=== PATIENT | male | born 1935 | race Caucasian/White ===

== ENCOUNTER 2016-10-23 14:39 | Inpatient (IN) | payer BC ==
[2016-10-22 09:26] LABS: INTERNATIONAL NORMAL RATI 1.7 UNITS (-)
[2016-10-22 09:27] LABS: PROTIME (NOT ORD) 19.5 SEC (12.0-14.5)
--- NOTE | ~2016-10-23 | CN ---
Consultation Report [facility] [address] [place]. [address] NAME: ADEEL PELAEZ : 37 STATUS : ADM IN [facility]#: [id number] AGE: 81 ADM/REG DATE : 10/23/16 MR#: [id number] REPORT SERV DATE: 10/24/16 DICTATED BY: DENVER JOHNSTON DATE: 10/24/16 REPORT STATUS : Draft TRANSCRIBED BY: MODL DATE: 10/24/16 CARDIOLOGY CONSULTATION DATE OF CONSULTATION: 10/24/2016 REASON FOR CONSULTATION: Regarding congestive heart failure. REQUESTING PHYSICIAN: Juliane Jarrell M.D. HISTORY OF PRESENT ILLNESS: Mr. Pelaez is a pleasant 81-year-old gentleman, who was admitted with complaints of nausea and vomiting that started over the last one to two days. He has a known history of coronary artery disease and ischemic cardiomyopathy, and sees Dr. Gerber Do in the [facility]. He has a history of a remote CAB. He has had a biventricular ICD placed in the past and has a history of atrial fibrillation, and is treated with amiodarone and Coumadin for CVA prophylaxis. In early August, he had a long hospital stay in regard to hypovolemic shock, acute kidney injury, and respiratory failure. He also had problems with hematuria at that time. He has a chronic Lora inserted. He was transferred to rehabilitation on 09/23/2016 and was there when he began to complain of nausea with some mild vomiting approximately two days ago. He came in through the emergency room. Workup here was essentially unremarkable. He did show some mild pulmonary vascular congestion, and a small left pleural effusion. He was denying any PND, orthopnea, pedal edema, as well as any chest pain or chest discomfort. PAST MEDICAL HISTORY: 1. Notable for coronary artery disease, status post CAB. 2. Ischemic cardiomyopathy, ejection fraction of 25%. Class 3 congestive heart failure. 3. History of what appears to be a biventricular ICD. 4. Atrial fibrillation. 5. Hypertension. 6. Hyperlipidemia. 7. Type 2 diabetes. 8. Crohn's disease. 9. AAA. 10.COPD. 11.Anemia. 12.Hematuria. HOME MEDICATIONS: Albuterol, amiodarone taking 100 mg daily, Lipitor 40 mg at bedtime, carvedilol 3.125 mg p.o. b.i.d., vitamin B12, Proscar, Levaquin, lisinopril 2.5 mg daily, magnesium, oxycodone, potassium, and omeprazole. FAMILY HISTORY: Noncontributory. Negative for premature coronary disease. SOCIAL HISTORY: Currently no tobacco. History of tobacco use. No alcohol. No illicit drug Consultation Report [address] [place]. [address] NAME: ADEEL PELAEZ : 37 STATUS : ADM IN [facility]#: [id number] AGE: 81 ADM/REG DATE : 10/23/16 MR#: [id number] REPORT SERV DATE: 10/24/16 DICTATED BY: DENVER JOHNSTON DATE: 10/24/16 REPORT STATUS : Draft TRANSCRIBED BY: TRUMAN DATE: 10/24/16 use. REVIEW OF SYSTEMS: As noted above. All other systems were reviewed and negative. PHYSICAL EXAMINATION: VITAL SIGNS: Blood pressure of 134/68, pulse of 70 and paced, and respirations 16. GENERAL: Well developed, well nourished. HEENT: No icterus. Good dentition. NECK: Supple. No masses or thyromegaly LUNGS: Breathing comfortably. No rales or wheezes. COR: Normal S1, S2. No S3 or S4. No murmurs, clicks, rubs. No JVD ABD: Soft, nondistended, nontender, no hepatosplenomegaly. EXT: No clubbing, cyanosis or edema. Peripheral pulses 2+ or equal bilaterally. SKIN: Warm and dry. No visible lesions. MS: Chest wall without deformity, no obvious clavicular fractures. NEURO/PSYCH: Oriented X3. No anxiety or depression. DIAGNOSTIC DATA: EKG, unclear underlying rhythm, possible atrial fibrillation with complete heart block, and biventricular pacing. LABORATORY DATA: INR is subtherapeutic at 1.5. BUN, creatinine, and electrolytes all within normal limits. White count of 5.7, hematocrit of 38, and platelet count of 383. IMPRESSION: 1. The patient was admitted with complaints of nausea and vomiting, this is unlikely to be related to underlying congestive heart failure. He does not appear to have a congestive heart failure exacerbation. He is denying PND, orthopnea, or pedal edema. There is some mild pulmonary vascular congestion on chest x-ray, although, this very well may be a chronic condition for him. When I saw him this morning, he was lying completely flat, and did not have any shortness of breath. He is undergoing a gentle diuresis with Bumex 0.5 mg IV p.o. b.i.d. I believe this is reasonable to see if this improves his symptoms at all, but again, it seems less likely that his current symptoms are manifestation of his coronary artery disease or congestive heart failure. 2. ICD appears to be biventricularly pacing by EKG morphology. This appears to be within normal limits. 3. Coronary artery disease, history of CAB, this appears to be stable. I would continue his current cardiac medications. His INR was subtherapeutic on admission, and it is increasing, and it is now up to 1.9. No further recommendations from cardiology standpoint at this time. RUIZ/TRUMAN Consultation Report [address] [address] NAME: ADEEL PELAEZ : 37 STATUS : ADM IN PAT#: [id number] AGE: 81 ADM/REG DATE : 10/23/16 MR#: [id number] REPORT SERV DATE: 10/24/16 DICTATED BY: DENVER JOHNSTON DATE: 10/24/16 REPORT STATUS : Draft TRANSCRIBED BY: MODL DATE: 10/24/16 Denver Johnston M.D. / [id number] CC: Kurtis Corey MD
--- NOTE | ~2016-10-23 | HP ---
History And Physical [address] [place]. [address] NAME: ADEEL PELAEZ : 37 STATUS : ADM IN [facility]#: [id number] AGE: 81 ADM/REG DATE : 10/23/16 MR#: [id number] REPORT SERV DATE: 10/23/16 DICTATED BY: MITALI MONTES DATE: 10/23/16 REPORT STATUS : Draft TRANSCRIBED BY: TRUMAN DATE: 10/23/16 DATE OF ADMISSION: 10/23/2016 CHIEF COMPLAINT: Nausea and vomiting. A 81-year-old male with a past medical history of ischemic cardiomyopathy, ejection fraction of 25%, status post CABG and AICD/pacer, being followed by Dr. Do, investment director as an outpatient. Also history of chronic Lora with a history of a recent hematuria requiring cystoscopy/evacuation per Urology. The patient was recently discharged from the hospital on 09/23/2016 for hypovolemic shock with acute renal failure, respiratory failure also with hematuria, taken to the OR for cystoscopy. The patient had a lengthy hospitalization. Currently resides at [facility]. The patient states that approximately 1 to 2 days ago, he developed intractable nausea and vomiting. Denies any hematemesis. Just clear vomit according to the patient as well as worsening shortness of breath. He denies any dysuria. No abdominal pain. He states he has had intermittent left-sided chest discomfort which now has resolved. He denies any subjective fever or chills. No diarrhea. No constipation. His last BM was approximately 5 a.m. which was stated as normal this morning. The patient was seen in the ER by Dr. Uribe. Given a dose of cefepime for suspected urinary tract infection and treated with Phenergan and Zofran for intractable nausea and vomiting and given a dose of lactated Ringer's 500 mL bolus and the hospitalist was called to admit the patient to the hospital. REVIEW OF SYSTEMS: Please refer to HPI. PAST MEDICAL HISTORY: Ischemic cardiomyopathy/coronary artery disease, status post CABG with ejection fraction of 25%, status post AICD/pacer; hematuria; anemia; hypoxia; COPD; obstructive sleep apnea with CPAP; atrial fibrillation; Crohn's disease; hypertension; hyperlipidemia; type 2 diabetes; and AAA. PAST SURGICAL HISTORY: Tonsillectomy, cystoscopy, and also as mentioned above. FAMILY HISTORY: Type 2 diabetes. SOCIAL HISTORY: No tobacco but a history but quit. No alcohol or illicit drugs. Currently in [facility] for rehab. ALLERGIES: NO KNOWN ALLERGIES. MEDICATIONS: DuoNeb b.i.d. and q.4 hours p.r.n.; amiodarone 100 mg p.o. q.a.m.; Lipitor 40 mg p.o. at bedtime; Bisacodyl 10 mg per rectum daily p.r.n.; Coreg 3.125 mg p.o. b.i.d.; cholecalciferol 2000 units p.o. q.a.m.; vitamin B12 1000 mcg sublingual q.a.m.; diclofenac 2 g topically q.i.d. and p.r.n.; Lomotil 5 mg p.o. b.i.d. p.r.n.; Proscar 5 mg p.o. at bedtime; guaifenesin 400 mg p.o. b.i.d. p.r.n.; Levaquin 500 mg daily dose for seven days, completed on 10/12/2016; lisinopril 2.5 mg p.o. daily; magnesium oxide 400 mg p.o. q.a.m.; melatonin 3 mg p.o. at bedtime p.r.n.; milk of magnesia 30 mL p.o. daily p.r.n.; Dulera 2 History And Physical [address] [address] NAME: ADEEL PELAEZ : 37 STATUS : ADM IN [facility]#: [id number] AGE: 81 ADM/REG DATE : 10/23/16 MR#: [id number] REPORT SERV DATE: 10/23/16 DICTATED BY: MITALI MONTES DATE: 10/23/16 REPORT STATUS : Draft TRANSCRIBED BY: TRUMAN DATE: 10/23/16 puffs inhaled b.i.d.; multivitamin; Prilosec 40 mg p.o. q.a.m.; Percocet 5/325 one tab p.o. q.4 hours p.r.n.; potassium chloride/K-Dur 20 mEq p.o. q.a.m.; Florastor 250 mg p.o. b.i.d.; Gas-X 80 mg p.o. four times a day p.r.n.; Bactrim DS one tab p.o. b.i.d. for five days completed on 10/18/2016; Ultram 50 mg p.o. q.6 hours p.r.n.; and warfarin 1.5 mg p.o. daily. PHYSICAL EXAMINATION: VITAL SIGNS: Temperature of 98.8, blood pressure 124/54 with a pulse of 89, respiration of 16, saturating 88 to 92% on 2 to 3 L. GENERAL: The patient is alert and oriented x3, morbidly obese. HEENT: Pupils equal, round, and reactive to light. Extraocular muscles are intact with moist mucous membranes. CARDIOVASCULAR: S1, S2. Irregularly irregular. No rubs. No gallops. RESPIRATORY: With positive rales, more so in the right upper quadrant right lower lobe and no wheezing. Positive wet sounds. No tachypnea. ABDOMEN: Positive bowel sounds. Soft, nontender. No rebound. No fluid wave. No distention. EXTREMITIES: 2+ pulse bilaterally with a trace of edema. NEUROLOGIC: Cranial nerves II through XII grossly intact. Moves all four extremities. No neuro focal deficits. DATA: Chest x-ray with some venous congestion and reported small left pleural effusion, however with some increased infiltrate also in the right middle lobe and right lower lobe per my interpretation. Sodium 144, potassium 4.1 with a chloride of 110, bicarb 26, BUN of 13, creatinine of 0.81 with a glucose of 109, albumin of 2.6, T-bilirubin 0.7 with alkaline phosphatase of 128, ALT of 41, AST of 49, troponin is 0.03. White cell count of 5.7 with a hemoglobin of 12.4, platelet count of 383. INR 1.5. Urinalysis, apparently urinalysis was gathered from the Lora bag by the ER nurse, it should have been from the port, however has a specific gravity of 1.018, large amount of blood, large amount of leukocyte esterase with greater than 182 of white blood cells. EKG with paced rhythm. No ST elevation. ASSESSMENT AND PLAN: 1. CHF exacerbation, fluid overload. 2. Intractable nausea and vomiting. 3. Suspected urinary tract infection with chronic Lora. 4. Acute on chronic hypoxia. 5. Obstructive sleep apnea. 6. Atrial fibrillation. 7. Type 2 diabetes. The patient will be admitted into the hospital. We will give a dose of a diuretic low-dose and closely monitor blood pressure due to his history of hypotension in the past. The patient is currently in fluid overload. Also, we will support with antiemetics as needed and also we will recommend a repeat urine culture from higher up port catheter and to avoid bag urine culture from the Lora bag. We will continue with bronchodilators. Also we will History And Physical [address] [address] NAME: ADEEL PELAEZ : 37 STATUS : ADM IN [facility]#: [id number] AGE: 81 ADM/REG DATE : 10/23/16 MR#: [id number] REPORT SERV DATE: 10/23/16 DICTATED BY: MITALI MONTES DATE: 10/23/16 REPORT STATUS : Draft TRANSCRIBED BY: TRUMAN DATE: 10/23/16 order for home CPAP and consult pharmacy for Coumadin management. The patient is currently subtherapeutic. Also we will place on a sliding scale insulin for now. The patient should be closely monitored. [facility]/TRUMAN Mitali Montes M.D. / [id number] CC: Kurtis Corey MD
--- NOTE | ~2016-10-23 | CN ---
Consultation Report [facility] [place] [place]. [address] NAME: ADEEL PELAEZ : 37 STATUS : ADM IN PAT#: [id number] AGE: 81 ADM/REG DATE : 10/23/16 MR#: [id number] REPORT SERV DATE: 10/24/16 DICTATED BY: Pradeep HUSAIN DATE: 10/24/16 REPORT STATUS : Draft TRANSCRIBED BY: MODL DATE: 10/24/16 CONSULTATION DATE OF CONSULTATION: 10/24/2016 CHIEF COMPLAINT: Urinary retention with chronic indwelling Lora, possible UTI. HISTORY OF PRESENT ILLNESS: Mr. 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 I was able to manipulate a catheter in his bladder. He was admitted for other medical problems and developed hematuria that required catheter clot evacuation several weeks later. He has failed several voiding trials and has been nonambulatory and I have been reluctant to try to get him catheter free at this time. I saw him in my office three or four weeks ago and managed to change his catheter uneventfully, although I had to do it myself. He is admitted now with his host of medical problems and with basically nausea and vomiting and is being evaluated for that. There was some concern that he may have a UTI, although obviously he has inflammatory urine with a chronic indwelling Lora. The culture has been sent. PAST MEDICAL HISTORY: 1. Severe ischemic cardiomyopathy. 2. CAD. 3. AICD pacemaker. 4. Urinary retention. 5. COPD. 6. Obstructive sleep apnea. 7. Atrial fib. 8. Crohn disease. 9. Hypertension. 10.Hyperlipidemia. 11.Diabetes mellitus. PAST SURGICAL HISTORY: 1. Tonsillectomy. 2. Several cystoscopic exams with clot evacuation. 3. CABG. 4. AICD. 5. Cardiac stent. 6. Appendectomy. 7. Left nephrectomy for renal cell carcinoma. 8. Left carpal tunnel repair. 9. Eyelid surgery. 10.Cataract extraction. HOME MEDICATIONS: DuoNeb inhaler, Cordarone, Lipitor, Dulcolax, Coreg, vitamin D, vitamin B, Consultation Report [id number] [place]. [address] NAME: ADEEL PELAEZ : 37 STATUS : ADM IN PAT#: [id number] AGE: 81 ADM/REG DATE : 10/23/16 MR#: [id number] REPORT SERV DATE: 10/24/16 DICTATED BY: Pradeep HUSAIN DATE: 10/24/16 REPORT STATUS : Draft TRANSCRIBED BY: TRUMAN DATE: 10/24/16 Voltaren, Lomotil, Proscar, guaifenesin, Levaquin, Prinivil, Mag-Ox, melatonin, milk of magnesia, Dulera, multivitamins, Prilosec, Percocet, potassium. ALLERGIES: NO KNOWN DRUG ALLERGIES. FAMILY HISTORY: Negative for urologic disease. SOCIAL HISTORY: Previous smoker. Denies current alcohol use. REVIEW OF SYSTEMS: Full 12-point review of systems negative except as noted above. PHYSICAL EXAMINATION: GENERAL: A 81-year-old white male, alert, pleasant, afebrile with normal vital signs. No respiratory distress. HEART: Regular rate and rhythm. ABDOMEN: Protuberant, nontender, nondistended. : Indwelling 20-Andorran 2-way Lora catheter draining crystal clear urine. He has a phimotic buried-type penis. No peripheral edema noted. PERTINENT LABORATORIES: Creatinine 0.81. Urinalysis inflammatory as expected, it has been sent for culture. IMPRESSION: 1. Multiple medical problems. 2. History of chronic urinary retention with buried penis. Managed currently with indwelling Lora catheter. PLAN: I think at this point my thought would be that we wait his culture when he is on antibiotics for few days, but then we could probably change his catheter since he is due to have that done in the near future. If he is discharged before that, then I could do it in my office. I am not really ready to give him a voiding trial until he is more ambulatory. [facility]/TRUMAN Pradeep Husain M.D. / [id number] CC: Kurtis Corey MD
--- NOTE | ~2016-10-23 | DS ---
Discharge Summary [facility] [address] [place]. [address] NAME: ADEEL PELAEZ : 39 STATUS : DIS IN PAT#: [id number] AGE: 81 ADM/REG DATE : 10/23/16 MR#: [id number] REPORT SERV DATE: 10/30/16 DICTATED BY: LAILA PATEL DATE: 10/30/16 REPORT STATUS : Draft TRANSCRIBED BY: MODL DATE: 10/30/16 ADMISSION DATE: 10/23/2016 DISCHARGE DATE: 10/30/2016 DIAGNOSES ON ADMISSION: 1. Congestive heart failure exacerbation with fluid overload. 2. Intractable nausea and vomiting. 3. Suspected urinary tract infection with chronic Lora catheter. 4. Acute on chronic hypoxia. 5. Obstructive sleep apnea. 6. History of atrial fibrillation, chronic in nature. 7. Diabetes type 2. DIAGNOSES ON DISCHARGE: 1. Congestive heart failure exacerbation, chronic systolic dysfunction, compensated. 2. Chest congestion present on admission with fluid overload present on admission, currently resolved after IV diuretics. 3. Acute kidney injury present on admission, currently resolved. 4. Lora catheter associated urinary tract infection, treated, and Lora catheter changed, currently on nitrofurantoin according to urinary cultures. 5. Constipation, resolved. 6. History of nonsustained ventricular tachycardia, currently stable, asymptomatic. 7. Borderline blood pressure on the low side. Dr. Do, leg breaker, recommended low- dose Demadex at 10 mg a day. CONSULTANTS ON THE CASE: Director Of Women'S Services, Dr. Do, and urologist, Dr. Faustin. IMAGING STUDIES: Done during this hospitalization. Chest x-ray done on 10/29/2016 showed stable bibasilar atelectasis, otherwise, no chest congestion. HISTORY OF PRESENT ILLNESS: Briefly, this is a 81-year-old male with a history of multiple admissions and recent hospitalization in the past, presented with nausea and vomiting and was having urinary infection on admission as well as acute kidney injury. For the details, see history of present illness dictated by Dr. Jarrell on 10/23/2016. HOSPITAL COURSE: 1. Briefly, the patient was started on antibiotics. He was also started on intravenous diuresis for fluid overload. The patient was seen subsequently by Dr. Jarrell and Dr. Reyes. I started to see this patient on 10/27/2016. He was stable, but he had some chest congestion and he was given Bumex intravenously per leg breaker and then Bumex was stopped because the patient's blood pressure was on the borderline low side. Subsequently, the patient was switched to oral Demadex by Dr. Do and Dr. Do's recommendation was the patient to be discharged on a low dose Demadex 10 mg a day and this was discussed with Dr. Do. He saw the patient yesterday and I discussed with him today, he was okay for the patient to be discharged today. His blood pressure is currently running in the range of 105/56, 96/56, 92/51, and Dr. Do recommended to Discharge [address] [address] NAME: ADEEL PELAEZ : 39 STATUS : DIS IN PAT#: [id number] AGE: 81 ADM/REG DATE : 10/23/16 MR#: [id number] REPORT SERV DATE: 10/30/16 DICTATED BY: LAILA PTAEL DATE: 10/30/16 REPORT STATUS : Draft TRANSCRIBED BY: TRUMAN DATE: 10/30/16 continue his Cordarone as well as his Coreg at a dose 3.125 p.o. b.i.d., which he was on both medications from the beginning as well as Demadex 10 mg was recommended for this patient. Dr. Do was okay for the patient to be discharged today and he recommended to follow up with him in two-three weeks. 2. Urinary tract infection. The patient was initially treated empirically, but when his urinary culture came back, he grew Enterococcus faecalis, sensitive to nitrofurantoin, and Antonietta albicans. The patient was followed by Maxwell Faustin, his urologist. He changed his Lora catheter and there is a possibility this is just chronic colonization, but the recommendation on nitrofurantoin was for total of 5 more days. 3. His constipation resolved. 4. His hypokalemia has been replaced. The patient's chest congestion has resolved. He is doing very well today, so he was approved for [facility]. Urologist, Dr. Faustin, recommended patient to be discharged with a Lora catheter. DISCHARGE MEDICATIONS: Lipitor 40 mg a day, amiodarone 100 mg a day, carvedilol 3.125 p.o. b.i.d.; vitamin B12 1000 mg daily and vitamin D 2000 units daily, Proscar 5 mg a day, magnesium oxide 400 mg a day, multivitamins daily, NovoLog level 2 sliding scale, Accu-Cheks before meals and at bedtime, nitrofurantoin 100 mg p.o. b.i.d. for five days, omeprazole 40 mg a day, Florastor 250 b.i.d.; Coumadin 1.5 mg p.o. daily, the patient to check PT/INR on Wednesday, Wednesday, Wednesday, and to adjust according to INR level at [facility], and his INR today was 2.6; torsemide 10 mg a day; Dulera 200/5 mcg two puffs inhaled twice a day; Dulcolax suppository 10 mg daily p.r.n. for constipation; Mucinex 400 mg b.i.d. p.r.n.; melatonin 3 mg at bedtime as needed; Lomotil 5 mg p.o. twice daily p.r.n. for diarrhea; Voltaren Gel 1% 2 g topically as directed; DuoNeb inhaled one nebulization b.i.d.; the patient to discontinue lisinopril; potassium chloride 20 mEq daily; Gas-X 80 mg daily; milk of magnesia as needed for constipation; Percocet 5/325 one tablet every eight hours p.r.n. for pain, prescription written for total of 12 pills. The patient to check his BMP and magnesium on 11/02/2016, at [facility], as well as PT/INR to be checked on Wednesday, Wednesday, and Wednesday. I discussed with Dr. Faustin. He recommended the patient to follow up with him in two-three weeks as well as follow up with Dr. Do in two-three weeks. I spent 45 minutes on this discharge. MG/MODL Laila Patel M.D. / [id number] CC: Laila Patel M.D. Shamir Reyes MD Discharge Summary [address] [address] NAME: ADEEL PELAEZ : 39 STATUS : DIS IN PAT#: [id number] AGE: 81 ADM/REG DATE : 10/23/16 MR#: [id number] REPORT SERV DATE: 10/30/16 DICTATED BY: LAILA PATEL DATE: 10/30/16 REPORT STATUS : Draft TRANSCRIBED BY: MODL DATE: 10/30/16 Pradeep Faustin M.D. Gerber Do M.D.
[2016-10-23 14:03] LABS: BASOPHILS 0.3 %; BASOPHILS ABSOLUTE 0.02 10/3/uL (0.0-0.16); EOSINOPHILS 0.2 %; EOSINOPHILS ABSOLUTE 0.01 10/3/uL (0.0-0.53); ER CBC TAT 0 Hrs 09 Mins; HEMOGLOBIN 12.4 g/dL (13.6-17.8); IMMATURE GRANULOCYTES 0.3 %; IMMATURE GRANULOCYTES ABSOLUTE 0.02 10/3/uL (0.0-0.11); LYMPHOCYTES ABSOLUTE 1.03 10/3/uL (0.67-4.30); MEAN CORPUS HGB CONC 32.3 g/dL (32.0-36.0); MEAN CORPUSCULAR HEMOGLOB 30.1 pg (26.0-34.0); MEAN CORPUSCULAR VOLUME 93.2 fL (80-100); MEAN PLATELET VOLUME 8.6 fL (9.2-13.0); MONOCYTES 11.2 %; MONOCYTES ABSOLUTE 0.64 10/3/uL (0.21-1.20); NEUTROPHILS ABSOLUTE 4.01 10/3/uL (2.02-8.40); PLATELET COUNT 383 10/3/uL (150-400); RBC DISTRIBUTION WIDTH 18.9 % (12.0-16.0); RED CELL COUNT 4.12 10/6/uL (4.7-6.1); WHITE BLOOD CELLS 5.7 10/3/uL (4.5-10.5)
[2016-10-23 14:05] LABS: HEMATOCRIT 38.4 % (40.0-51.0); MANUAL DIFF NO %
[2016-10-23 14:09] LABS: INTERNATIONAL NORMAL RATI 1.5 UNITS (-); PROTIME (NOT ORD) 17.6 SEC (12.0-14.5)
[2016-10-23 14:23] LABS: BUN (BLOOD UREA NITROGEN) 13 MG/DL (6-23); CALCIUM, SERUM 8.4 MG/DL (8.5-10.4); CHLORIDE, SERUM 110 MMOL/L (96-112); CO2 (CARBON DIOXIDE) 26 MMOL/L (24-34); CREATININE 0.81 MG/DL (0.70-1.30); GFR AFRICAN AMERICAN 98 ML/MIN (>=60); GFR NON AFRICAN AMERICAN 85 ML/MIN (>=60); GLUCOSE, SERUM 109 MG/DL (60-99); POTASSIUM, SERUM 4.1 MMOL/L (3.5-5.3); SGOT(AST) 49 U/L (5-40); SGPT(ALT) 41 U/L (5-65); SODIUM, SERUM 144 MMOL/L (135-148); TOTAL PROTEIN 6.5 G/DL (6.0-8.5); TROPONIN I 0.03 NG/ML (<0.05)
[2016-10-23 14:26] LABS: ALBUMIN 2.6 G/DL (3.5-5.0)
[2016-10-23 14:27] LABS: A/G RATIO 0.7 (0.7-1.9); ALKALINE PHOSPHATASE 128 U/L (45-117); GLOBULIN 3.9 G/DL (2.5-4.1); TOTAL BILIRUBIN 0.7 MG/DL (0-1.2)
[~2016-10-23 14:39] MED LIST: *UNABLE1; ACET500CAP PO; ADVAIR115P INH; ALLOPURINOL PO; AMIODARONE PO; ASAB PO; ASPERCREME TOP; BUM2 PO; BUMEX PO; BYETTA10 SC; C2 PO; CENTRUM PO; CENTRUM TAB1 TAB PO; CIALIS PO; CIALIS20 MG PO; COMBIVENT INH; CORDARONE PO; COREG PO; COREG12 PO; COREG3 PO; COREG6 PO; CRESTOR10 PO; CRESTOR20 MG PO; CYANO1000T PO; DORYX50 MG PO; DULERA 200 MCG/13 GM INH; DUONEB INH; EPLERENONE PO; FISH-EPA1000 MG PO; FLORASTOR250 MG PO; HUMI PO; JANTOVEN1 MG PO; JANTOVEN2 MG PO; JANTOVEN4 MG PO; KDUR20 PO; KLOR-CON M2020 MEQ PO; L20 PO; L40 PO; LEVAQUIN5T PO; LIPITOR40 PO; LIQUID TEARS OPH; LOM PO; LOP25 PO; LOTE10 PO; MAGOX4 PO; MEVACOR40 MG PO; MEXILETINE150 MG PO; MIRALAXPKT PO; MOMUD PO; MULTIPLE VIT PO; MULTIVITAMI1 PO; OCEAN NAS; POTASSIUM PO; PRIN2.5 PO; PRODAXA PO; PROSCAR5 PO; SACU1TAB PO; SUGAR PILL PO; TESTIM1 % TD; TESTOSTERONE; ULTRAM50 PO; VITAMIN B-121000 MC1 SL; VITAMIN D1000 UNI1 PO; VITAMIN D31000 UNIT PO; VOLTAREN1 % TOP; WATER PILL PO; XPECT400 MG PO; Z100 PO; Z5 PO; ZAROX2.5B PO; ZOFRAN4 PO; ZOFRAN8 PO
[2016-10-23] MEDS ORDERED: MULTIVIT/MIN PO (14:40)
[2016-10-23] MEDS ORDERED: MAGOX4 PO (14:40)
[2016-10-23] MEDS ORDERED: KDUR20 PO (14:41)
[2016-10-23] MEDS ORDERED: PRILOSEC40 MG PO (14:41)
[2016-10-23] MEDS ORDERED: VITAMIN B-121000 MC1 SL (14:42)
[2016-10-23] MEDS ORDERED: GAS-X80 MG PO (14:42)
[2016-10-23] MEDS ORDERED: BACTRIM DS1 TAB PO (14:42)
[2016-10-23] MEDS ORDERED: COUMADIN3 MG PO (14:43)
[2016-10-23] MEDS ORDERED: VITAMIN D2000 UNIT PO (14:43)
[2016-10-23] MEDS ORDERED: BISR PR (14:44)
[2016-10-23] MEDS ORDERED: VOLTAREN1 % TOP (14:45)
[2016-10-23] MEDS ORDERED: LOM PO (14:45)
[2016-10-23] MEDS ORDERED: REFENESEN400 MG PO (14:45)
[2016-10-23] MEDS ORDERED: MOMUD PO (14:46)
[2016-10-23] MEDS ORDERED: MELA3 PO (14:46)
[2016-10-23] MEDS ORDERED: PCET PO (14:46)
[2016-10-23] MEDS ORDERED: DUONEB INH (14:46)
[2016-10-23] MEDS ORDERED: ULTRAM50 PO (14:47)
[2016-10-23 15:36] LABS: ASCORBIC ACID (UR NOT ORDER) NEG (NEG); BILIRUBIN, URINE NEGATIVE (NEG); ER URINALYSIS TAT 0 Hrs 24 Mins; KETONE, URINE TRACE MG/DL (NEG); LEUKOCYTE ESTERASE(NOT OR LARGE (NEG); NITRITE (URINE) NEG (NEG); WBC (NOT ORDERED) (RFLEX) > 182 (0-5)
[2016-10-23 23:10] LABS: CPK 22 U/L (0-200)
[2016-10-23 23:17] LABS: CK-MB 0.8 NG/ML; CPK 20 U/L (0-200); TROPONIN I 0.03 NG/ML (<0.05)
[2016-10-24 07:34] LABS: INTERNATIONAL NORMAL RATI 1.4 UNITS (-); PROTIME (NOT ORD) 17.1 SEC (12.0-14.5)
[2016-10-24 07:52] LABS: BUN (BLOOD UREA NITROGEN) 12 MG/DL (6-23); CALCIUM, SERUM 8.4 MG/DL (8.5-10.4); CHLORIDE, SERUM 109 MMOL/L (96-112); CO2 (CARBON DIOXIDE) 26 MMOL/L (24-34); CREATININE 0.76 MG/DL (0.70-1.30); GFR AFRICAN AMERICAN 101 ML/MIN (>=60); GFR NON AFRICAN AMERICAN 87 ML/MIN (>=60); GLUCOSE, SERUM 114 MG/DL (60-99); POTASSIUM, SERUM 4.2 MMOL/L (3.5-5.3); SODIUM, SERUM 144 MMOL/L (135-148)
[2016-10-24 07:53] LABS: ULTRASENSITIVE TSH 0.974 MCIU/ML (0.358-3.740)
[2016-10-24 09:42] LABS: ASCORBIC ACID (UR NOT ORDER) NEG (NEG); BILIRUBIN, URINE NEGATIVE (NEG); KETONE, URINE TRACE MG/DL (NEG); LEUKOCYTE ESTERASE(NOT OR LARGE (NEG)
[2016-10-24 09:52] LABS: WBC (NOT ORDERED) (RFLEX) > 182 (0-5)
[2016-10-25 08:14] LABS: BASOPHILS 0.3 %; EOSINOPHILS 1.4 %; HEMATOCRIT 40.1 % (40.0-51.0); HEMOGLOBIN 12.6 g/dL (13.6-17.8); IMMATURE GRANULOCYTES 0.2 %; LYMPHOCYTES 19.9 %; LYMPHOCYTES ABSOLUTE 1.32 10/3/uL (0.67-4.30); MEAN CORPUS HGB CONC 31.4 g/dL (32.0-36.0); MEAN CORPUSCULAR HEMOGLOB 29.8 pg (26.0-34.0); MEAN CORPUSCULAR VOLUME 94.8 fL (80-100); MONOCYTES 10.1 %; MONOCYTES ABSOLUTE 0.67 10/3/uL (0.21-1.20); NEUTROPHILS 68.1 %; NEUTROPHILS ABSOLUTE 4.53 10/3/uL (2.02-8.40); PLATELET COUNT 365 10/3/uL (150-400); RBC DISTRIBUTION WIDTH 18.9 % (12.0-16.0); RED CELL COUNT 4.23 10/6/uL (4.7-6.1); WHITE BLOOD CELLS 6.6 10/3/uL (4.5-10.5)
[2016-10-25 08:15] LABS: BASOPHILS ABSOLUTE 0.02 10/3/uL (0.0-0.16); EOSINOPHILS ABSOLUTE 0.09 10/3/uL (0.0-0.53); IMMATURE GRANULOCYTES ABSOLUTE 0.01 10/3/uL (0.0-0.11)
[2016-10-25 08:16] LABS: MANUAL DIFF NO %
[2016-10-25 08:19] LABS: INTERNATIONAL NORMAL RATI 1.4 UNITS (-); PROTIME (NOT ORD) 16.9 SEC (12.0-14.5)
[2016-10-25 08:26] LABS: BUN (BLOOD UREA NITROGEN) 12 MG/DL (6-23); CALCIUM, SERUM 8.5 MG/DL (8.5-10.4); CHLORIDE, SERUM 105 MMOL/L (96-112); CO2 (CARBON DIOXIDE) 29 MMOL/L (24-34); CREATININE 0.77 MG/DL (0.70-1.30); GFR AFRICAN AMERICAN 100 ML/MIN (>=60); GFR NON AFRICAN AMERICAN 86 ML/MIN (>=60); GLUCOSE, SERUM 100 MG/DL (60-99); POTASSIUM, SERUM 4.3 MMOL/L (3.5-5.3); SODIUM, SERUM 143 MMOL/L (135-148)
[2016-10-26 05:17] LABS: INTERNATIONAL NORMAL RATI 1.7 UNITS (-)
[2016-10-26 05:20] LABS: PROTIME (NOT ORD) 19.9 SEC (12.0-14.5)
[2016-10-26 07:50] LABS: CHLORIDE, SERUM 100 MMOL/L (96-112); CO2 (CARBON DIOXIDE) 25 MMOL/L (24-34); POTASSIUM, SERUM 4.8 MMOL/L (3.5-5.3); SODIUM, SERUM 138 MMOL/L (135-148)
[2016-10-26 07:51] LABS: BUN (BLOOD UREA NITROGEN) 23 MG/DL (6-23); CREATININE 1.62 MG/DL (0.70-1.30); GFR AFRICAN AMERICAN 46 ML/MIN (>=60); GFR NON AFRICAN AMERICAN 40 ML/MIN (>=60); GLUCOSE, SERUM 213 MG/DL (60-99)
[2016-10-27 07:25] LABS: BASOPHILS 0.2 %; BASOPHILS ABSOLUTE 0.01 10/3/uL (0.0-0.16); EOSINOPHILS 1.2 %; EOSINOPHILS ABSOLUTE 0.08 10/3/uL (0.0-0.53); HEMOGLOBIN 11.2 g/dL (13.6-17.8); IMMATURE GRANULOCYTES 0.5 %; IMMATURE GRANULOCYTES ABSOLUTE 0.03 10/3/uL (0.0-0.11); LYMPHOCYTES 16.1 %; LYMPHOCYTES ABSOLUTE 1.05 10/3/uL (0.67-4.30); MANUAL DIFF NO %; MEAN CORPUS HGB CONC 32.9 g/dL (32.0-36.0); MEAN CORPUSCULAR HEMOGLOB 29.7 pg (26.0-34.0); MEAN CORPUSCULAR VOLUME 90.2 fL (80-100); MEAN PLATELET VOLUME 9.2 fL (9.2-13.0); MONOCYTES 10.1 %; MONOCYTES ABSOLUTE 0.66 10/3/uL (0.21-1.20); NEUTROPHILS 71.9 %; PLATELET COUNT 319 10/3/uL (150-400); RBC DISTRIBUTION WIDTH 18.5 % (12.0-16.0); RED CELL COUNT 3.77 10/6/uL (4.7-6.1); WHITE BLOOD CELLS 6.5 10/3/uL (4.5-10.5)
[2016-10-27 07:36] LABS: CALCIUM, SERUM 8.3 MG/DL (8.5-10.4); CHLORIDE, SERUM 99 MMOL/L (96-112); CO2 (CARBON DIOXIDE) 24 MMOL/L (24-34); CREATININE 1.87 MG/DL (0.70-1.30); GFR AFRICAN AMERICAN 39 ML/MIN (>=60); GFR NON AFRICAN AMERICAN 33 ML/MIN (>=60); SODIUM, SERUM 133 MMOL/L (135-148)
[2016-10-27 07:37] LABS: BUN (BLOOD UREA NITROGEN) 49 MG/DL (6-23); GLUCOSE, SERUM 120 MG/DL (60-99)
[2016-10-27 09:00] LABS: INTERNATIONAL NORMAL RATI 3.6 UNITS (-)
[2016-10-27 09:08] LABS: PROTIME (NOT ORD) 35.7 SEC (12.0-14.5)
[2016-10-28 04:58] LABS: INTERNATIONAL NORMAL RATI 3.2 UNITS (-); PROTIME (NOT ORD) 32.1 SEC (12.0-14.5)
[2016-10-28 05:04] LABS: HEMATOCRIT 31.9 % (40.0-51.0); HEMOGLOBIN 10.4 g/dL (13.6-17.8); MEAN CORPUS HGB CONC 32.6 g/dL (32.0-36.0); MEAN CORPUSCULAR HEMOGLOB 29.7 pg (26.0-34.0); MEAN CORPUSCULAR VOLUME 91.1 fL (80-100); MEAN PLATELET VOLUME 9.6 fL (9.2-13.0); PLATELET COUNT 293 10/3/uL (150-400); RBC DISTRIBUTION WIDTH 18.7 % (12.0-16.0); WHITE BLOOD CELLS 6.7 10/3/uL (4.5-10.5)
[2016-10-28 05:07] LABS: MANUAL DIFF YES %
[2016-10-28 05:20] LABS: CALCIUM, SERUM 8.8 MG/DL (8.5-10.4); CHLORIDE, SERUM 100 MMOL/L (96-112); CO2 (CARBON DIOXIDE) 24 MMOL/L (24-34); GFR AFRICAN AMERICAN 59 ML/MIN (>=60); GFR NON AFRICAN AMERICAN 50 ML/MIN (>=60); GLUCOSE, SERUM 110 MG/DL (60-99); SODIUM, SERUM 134 MMOL/L (135-148)
[2016-10-28 05:23] LABS: BUN (BLOOD UREA NITROGEN) 38 MG/DL (6-23); CREATININE 1.33 MG/DL (0.70-1.30)
[2016-10-28 05:47] LABS: ANISOCYTOSIS 1+ (5-10/OIF) (0-5/OIF); BAND NEUTROPHILS 8 %; BURR CELLS 1+ (3-10/OIF) (0-2/OIF); EOSINOPHILS 3 %; LYMPHOCYTES 7 %; LYMPHOCYTES ABSOLUTE (CALC) 0.47 10/3/uL (0.67-4.30); MONOCYTES 5 %; MONOCYTES ABSOLUTE (CALC) 0.34 10/3/uL (0.21-1.20); PLATELET ESTIMATE ADQ (ADEQUATE); SEGMENTED NEUTROPHIL (0) 77 %; TOTAL NUCLEATED CELLS 100
[2016-10-29 04:16] LABS: BASOPHILS 0.2 %; BASOPHILS ABSOLUTE 0.01 10/3/uL (0.0-0.16); EOSINOPHILS ABSOLUTE 0.31 10/3/uL (0.0-0.53); HEMATOCRIT 30.4 % (40.0-51.0); HEMOGLOBIN 9.8 g/dL (13.6-17.8); IMMATURE GRANULOCYTES 0.5 %; IMMATURE GRANULOCYTES ABSOLUTE 0.03 10/3/uL (0.0-0.11); LYMPHOCYTES 10.2 %; LYMPHOCYTES ABSOLUTE 0.63 10/3/uL (0.67-4.30); MEAN CORPUS HGB CONC 32.2 g/dL (32.0-36.0); MEAN CORPUSCULAR HEMOGLOB 29.6 pg (26.0-34.0); MEAN CORPUSCULAR VOLUME 91.8 fL (80-100); MEAN PLATELET VOLUME 9.7 fL (9.2-13.0); MONOCYTES 9.5 %; MONOCYTES ABSOLUTE 0.59 10/3/uL (0.21-1.20); NEUTROPHILS 74.6 %; NEUTROPHILS ABSOLUTE 4.63 10/3/uL (2.02-8.40); PLATELET COUNT 290 10/3/uL (150-400); RBC DISTRIBUTION WIDTH 18.5 % (12.0-16.0); RED CELL COUNT 3.31 10/6/uL (4.7-6.1); WHITE BLOOD CELLS 6.2 10/3/uL (4.5-10.5)
[2016-10-29 04:18] LABS: MANUAL DIFF NO %
[2016-10-29 04:22] LABS: INTERNATIONAL NORMAL RATI 2.9 UNITS (-)
[2016-10-29 04:33] LABS: CALCIUM, SERUM 8.6 MG/DL (8.5-10.4); CHLORIDE, SERUM 101 MMOL/L (96-112); CO2 (CARBON DIOXIDE) 27 MMOL/L (24-34); CREATININE 0.96 MG/DL (0.70-1.30); GFR AFRICAN AMERICAN 87 ML/MIN (>=60); GFR NON AFRICAN AMERICAN 75 ML/MIN (>=60); GLUCOSE, SERUM 102 MG/DL (60-99); POTASSIUM, SERUM 3.7 MMOL/L (3.5-5.3); SODIUM, SERUM 137 MMOL/L (135-148)
[2016-10-29 04:35] LABS: BUN (BLOOD UREA NITROGEN) 30 MG/DL (6-23)
[2016-10-30 04:51] LABS: BASOPHILS 0.2 %; BASOPHILS ABSOLUTE 0.01 10/3/uL (0.0-0.16); EOSINOPHILS 5.2 %; EOSINOPHILS ABSOLUTE 0.33 10/3/uL (0.0-0.53); HEMATOCRIT 31.5 % (40.0-51.0); HEMOGLOBIN 10.1 g/dL (13.6-17.8); IMMATURE GRANULOCYTES 0.8 %; IMMATURE GRANULOCYTES ABSOLUTE 0.05 10/3/uL (0.0-0.11); LYMPHOCYTES 11.5 %; LYMPHOCYTES ABSOLUTE 0.73 10/3/uL (0.67-4.30); MEAN CORPUS HGB CONC 32.1 g/dL (32.0-36.0); MEAN CORPUSCULAR HEMOGLOB 29.4 pg (26.0-34.0); MEAN CORPUSCULAR VOLUME 91.6 fL (80-100); MEAN PLATELET VOLUME 9.5 fL (9.2-13.0); MONOCYTES 11.1 %; NEUTROPHILS 71.2 %; NEUTROPHILS ABSOLUTE 4.51 10/3/uL (2.02-8.40); PLATELET COUNT 305 10/3/uL (150-400); RBC DISTRIBUTION WIDTH 18.4 % (12.0-16.0); RED CELL COUNT 3.44 10/6/uL (4.7-6.1); WHITE BLOOD CELLS 6.3 10/3/uL (4.5-10.5)
[2016-10-30 04:54] LABS: MANUAL DIFF NO %
[2016-10-30 04:57] LABS: INTERNATIONAL NORMAL RATI 2.6 UNITS (-); PROTIME (NOT ORD) 27.2 SEC (12.0-14.5)
[2016-10-30 05:09] LABS: CALCIUM, SERUM 8.5 MG/DL (8.5-10.4); CHLORIDE, SERUM 101 MMOL/L (96-112); CO2 (CARBON DIOXIDE) 29 MMOL/L (24-34); CREATININE 0.98 MG/DL (0.70-1.30); GFR AFRICAN AMERICAN 85 ML/MIN (>=60); GFR NON AFRICAN AMERICAN 73 ML/MIN (>=60); GLUCOSE, SERUM 96 MG/DL (60-99); POTASSIUM, SERUM 3.3 MMOL/L (3.5-5.3); SODIUM, SERUM 140 MMOL/L (135-148)
[2016-10-30 05:11] LABS: BUN (BLOOD UREA NITROGEN) 25 MG/DL (6-23)
[2017-01-18] MEDS ORDERED: DUONEB INH (10:45)
[2017-01-18] MEDS ORDERED: PACERONE100 MG PO (10:45)
[2017-01-18] MEDS ORDERED: BIST PO (10:47)
[2017-01-18] MEDS ORDERED: DOK100 MG PO (10:53)
[2017-01-18] MEDS ORDERED: TOPXL25 PO (10:54)
[2017-01-18] MEDS ORDERED: NORCO1 TA1 PO (10:54)
[2017-01-18] MEDS ORDERED: HUMALOG SC (10:54)
[2017-01-18] MEDS ORDERED: PROAMAT5 PO (10:55)
[2017-01-18] MEDS ORDERED: ZOFRAN4 PO (10:55)
[2017-01-18] MEDS ORDERED: DEMA10T PO (10:56)
[2017-01-18] MEDS ORDERED: VITAMIN D31000 UNIT PO (10:56)
[2017-01-18] MEDS ORDERED: SPIRIVA INH (10:56)
[2017-01-18] MEDS ORDERED: C2 (10:57)
[2017-01-19] MEDS ORDERED: LIPITOR40 PO (12:14)
[2017-01-20] MEDS ORDERED: C1 PO (14:26)
[2017-01-20] MEDS ORDERED: ALBUTEROL5 INH (14:26)
[2017-01-20] MEDS ORDERED: VOLTAREN1 % TOP (14:27)
[2017-01-20] MEDS ORDERED: BIST PO (14:27)
[2017-01-20] MEDS ORDERED: DULERA 200 MCG/13 GM INH (14:28)
[2017-01-20] MEDS ORDERED: PROSCAR5 PO (14:28)
[2017-01-20] MEDS ORDERED: HUMALOG SC (14:28)
[2017-01-20] MEDS ORDERED: MAGOX4 PO (14:29)
[2017-01-20] MEDS ORDERED: NORCO1 TA1 PO (14:29)
[2017-01-20] MEDS ORDERED: PRILOSEC40 MG PO (14:30)
[2017-01-20] MEDS ORDERED: ZOFRAN4 PO (14:30)
[2017-01-20] MEDS ORDERED: VITAMIN D31000 UNIT PO (14:31)
[2017-01-20] MEDS ORDERED: KLOR-CON M2020 MEQ PO (14:31)
[2017-01-21] MEDS ORDERED: CORDARONE PO (18:25)
[2017-01-21] MEDS ORDERED: KLOR-CON M2020 MEQ PO (18:29)
== END 2016-10-30 15:30 | DRG 698 ==
LOC: ER 14:39 → 5SO 18:46
PROVIDERS: Emergency Medicine; Hospitalist; Internal Medicine; Internal Medicine Cardiovascular Disease; Internal Medicine Clinical Cardiac Electrophysiology; Physical Medicine & Rehabilitation
DX: T83.518A Infection and inflammatory reaction due to other urinary catheter, initial encounter (principal); J96.01 Acute respiratory failure with hypoxia; I47.2 Ventricular tachycardia; I50.23 Acute on chronic systolic (congestive) heart failure; N17.9 Acute kidney failure, unspecified; N39.0 Urinary tract infection, site not specified; I11.0 Hypertensive heart disease with heart failure; I48.2 Chronic atrial fibrillation; G47.33 Obstructive sleep apnea (adult) (pediatric); I25.10 Atherosclerotic heart disease of native coronary artery without angina pectoris; I25.5 Ischemic cardiomyopathy; Z95.810 Presence of automatic (implantable) cardiac defibrillator; E78.5 Hyperlipidemia, unspecified; I71.4 Abdominal aortic aneurysm, without rupture; Z79.899 Other long term (current) drug therapy; Z95.1 Presence of aortocoronary bypass graft; Z95.5 Presence of coronary angioplasty implant and graft; Z90.49 Acquired absence of other specified parts of digestive tract; Z98.890 Other specified postprocedural states; Z90.5 Acquired absence of kidney; Z79.01 Long term (current) use of anticoagulants; K59.00 Constipation, unspecified; E87.6 Hypokalemia
CPT/HCPCS: 71010; 74000; 80048; 80053; 81001; 82550; 82553; 82962; 83735; 83880; 84443; 84484; 85025; 85610; 85730; 87045; 87046; 87046-59; 87077; 87086; 87186; 87493; 87493-59; 87899; 87899-59; 89055; 93005; 94640; 94667; 94668; 96374; 96375; 96376; 97162-GP; 97166-GO; 97530-GP; 99285; A9270-GY; G8978-CN-GP; G8979-CL-GP; J0692; J2405; J2550; J3370